=== PATIENT | female | born 1980 | race Caucasian/White ===

== ENCOUNTER 2017-09-06 18:07 | Emergency (ER) | payer OTHER ==
[2017-09-06 18:13] VITALS: BP 124/56; PULSE 92; RESP 16; TEMP 98.9; O2SAT 99
--- NOTE | 2017-09-06 18:37 | PD ---
HPI Chief Complaint: ENT Complaint Time Seen by Provider: 18:28 Travel History International Travel<30 days: No Contact w/Intl Traveler<30days: No Traveled to known affect area: No History of Present Illness HPI 37-year-old female presents the emergency department with sore throat since last evening. Patient denies specific complaints of fever. No ear pain. No nausea or vomiting. Patient states she is 11 weeks . Has no cough or shortness of breath. No chest pain. Pain in the throat is negative at a 10. It hurts to swallow. She has no known drug allergies. PFSH Past Medical History ?: Social History Alcohol Use: No Tobacco Use: No Substance Use: No Allergies-Medications (Allergen,Severity, Reaction): Coded Allergies: No Known Allergies (Unverified , 09/06/17) Reported Meds & Prescriptions Reported Meds & Active Scripts Active Amoxicillin 500 Mg Cap 500 Mg PO TID 10 Days Review of Systems Except as stated in HPI: all other systems reviewed are Neg General / Constitutional: No: Fever, Chills Eyes: No: Visual changes HENT: Positive: Sore Throat, Rhinitis, Rhinorrhea, Congestion, No: Headaches, Vertigo, Lightheadedness, Nosebleed, Neck Stiffness, Neck Pain, Dental Difficulties, Ear Discharge, Earache Cardiovascular: No: Chest Pain or Discomfort Respiratory: No: Cough, Shortness of Breath, Wheezing, Sneezing Gastrointestinal: No: Nausea, Vomiting, Diarrhea, Abdominal Pain Genitourinary: Positive: Other (11 weeks ), No: Dysuria Musculoskeletal: No: Pain Skin: No Rash Neurologic: No: Weakness Psychiatric: No: Depression Endocrine: No: Polydipsia Hematologic/Lymphatic: No: Easy Bruising Physical Exam Narrative GENERAL: Patient appears in no acute distress. SKIN: Warm and dry. Normal color. Normal turgor. HEAD: Atraumatic. Normocephalic. EYES: Pupils equal and round. No scleral icterus. No injection or drainage. ENT: No nasal bleeding or discharge. Mucous membranes pink and moist. Posterior pharynx appears mildly erythematous with increased mucus noted. Muscles are not significantly enlarged. There is no exudate. No sinus tenderness to palpation. TMs are clear bilaterally. NECK: Trachea midline. Supple and nontender. CARDIOVASCULAR: Regular rate and rhythm. RESPIRATORY: No accessory muscle use. Clear to auscultation. Breath sounds equal bilaterally. GASTROINTESTINAL: Abdomen soft, non-tender, nondistended. Hepatic and splenic margins not palpable. MUSCULOSKELETAL: Extremities without clubbing, cyanosis, or edema. No obvious deformities. NEUROLOGICAL: Awake and alert. No obvious cranial nerve deficits. Motor grossly within normal limits. Five out of 5 muscle strength in the arms and legs. Normal speech. PSYCHIATRIC: Appropriate mood and affect; insight and judgment normal. Data Data Last Documented VS Vital Signs Date Time Temp Pulse Resp B/P (MAP) Pulse Ox O2 Delivery O2 Flow Rate FiO2 09/06/17 18:13 98.9 92 16 124/56 (78) 99 Orders Orders Group A Rapid Strep Screen (09/06/17 18:41) Strep Culture (Group A) (09/06/17 18:29) MDM Medical Decision Making Medical Screen Exam Complete: Yes Emergency Medical Condition: Yes Differential Diagnosis Upper respiratory infection. Pharyngitis. Strep throat. Narrative Course Rapid strep test is sent to the lab. Rapid strep is negative, however the patient has recurrent history of this, so treatment with amoxicillin is felt warranted. Patient is given amoxicillin 3 times a day 10 days. She can take Tylenol and ice chips frequently. Patient follow up if symptoms worsen as needed. Diagnosis Primary Impression: Acute pharyngitis, unspecified Qualified Codes: J02.9 - Acute pharyngitis, unspecified Referrals: [facility] PO Patient Instructions: General Instructions, Pharyngitis (ED) Additional Instructions: Patient is given amoxicillin 3 times a day 10 days. She can take Tylenol and ice chips frequently. Patient follow up if symptoms worsen as needed. Med/Other Pt SpecificInfo: Prescription(s) given Scripts Amoxicillin (Amoxicillin) 500 Mg Cap 500 MG PO TID for Infection for 10 Days, CAP 0 Refills Prov: Hiram Jones MD 09/06/17 Disposition: 01 DISCHARGE HOME Condition: Stable Fredy Malave Sep 06, 2017 18:37
[2017-09-06] MEDS ORDERED: AMOX500C PO (19:24)
== END 2017-09-06 19:35 | disposition home or self-care (01) ==
LOC: PHEFT 18:07
DX: O26.891 Other specified pregnancy related conditions, first trimester (principal); J02.9 Acute pharyngitis, unspecified; Z3A.11 11 weeks gestation of pregnancy
CPT/HCPCS: 87081; 87880; 99283

== ENCOUNTER → 2017-11-06 | Outpatient (CLI) | payer SELFPAY ==
[~2017-11-06] MED LIST: DOXY10TA PO; ONDA8TAB7 PO
== END ==
LOC: HPND 09:25
PROVIDERS: ATTEND Family Medicine
DX: O09.522 Supervision of elderly multigravida, second trimester (principal)
CPT/HCPCS: 76811

== ENCOUNTER → 2017-12-30 | Outpatient (CLI) | payer SELFPAY ==
[2017-12-30 10:06] LABS: HEMATOCRIT 29.9 % (35.0-46.0); HEMOGLOBIN 10.4 GM/DL (11.6-15.3)
== END ==
LOC: CLAB 08:27
PROVIDERS: ATTEND Family Medicine
DX: Z33.1 Pregnant state, incidental (principal)
CPT/HCPCS: 36415; 82951; 85014; 85018; 86850; 86900; 86901

== ENCOUNTER 2018-03-19 06:00 | Inpatient (IN) | payer MEDICAID ==
[~2018-03-19] VITALS: Ht 160 cm; Wt 64.0 kg
[2018-03-19] MEDS ORDERED: PREN1TAB45 PO (06:31)
[2018-03-19] MEDS ORDERED: ACETAMINOPHEN 325 MG TAB PO PRN ×2 (06:45→23:30)
[2018-03-19] MEDS ORDERED: SODIUM CHLORIDE 0.9% FLUSH 10 ML FLUSH IV FLUSH PRN ×2 (06:45→23:30)
[2018-03-19] MEDS ORDERED: DEXT 5%-NACL 0.45% 1000 ML INJ 1,000 ML IV ONE (06:45)
--- NOTE | 2018-03-19 06:45 | PD ---
HPI Chief Complaint contractions Date Seen: Mar 19, 2018 Time Seen: 06:10 Travel History International Travel<30 Days: No Contact w/Intl Traveler<30Days: No Known Affected Area: No History of Present Illness HPI Ms Phoenix is a Moldovan speaking 37 YO at 38/[address] Menon who presents with contractions since 3AM this morning. There is no LOF or VB, there is good FM. Contractions have been regular and painful. Pt has had no DM or HTN during and is GBS negative. Other labs have been wnl. First required for arrest of labor. Second ended in miscarriage. There have been no complications this . Weeks Gestation: 38 Para: 1 : 3 Miscarriage: 1 : 0 History Past Medical History Medical History: Denies Significant Hx Obstetric History Obstetric History for arrest of labor Spontaneous miscarriage Past Surgical History Narrative Surgical Family History Narrative Family History Denies Family History: Negative Social History Narrative Social History Lives in [place] Alcohol Use: No Tobacco Use: No Substance Abuse: No Allergies-Medications (Allergen,Severity, Reaction): Coded Allergies: No Known Allergies (Unverified , 10/07/17) Home Meds Active Scripts Doxylamine-Pyridoxine (Diclegis) 10-10 Mg Tab, 2 TAB PO HS, #60 TAB Michaelle dos (2) tabletas antes de dormir para la nausea Prov:Flavio Menon MD R2 10/15/17 Ondansetron (Ondansetron) 8 Mg Tab, 8 MG PO BID Y for NAUSEA OR VOMITING, #30 TAB 0 Refills Michaelle 1 tableta dos veces al olivia juan carlos se necesita para la nausea terry Prov:Flavio Menon MD R2 10/15/17 Review of Systems General / Constitutional: No: Fever, Chills Eyes: No: Blurred Vision, Visual changes HENT: No: Headaches, Lightheadedness Cardiovascular: No: Chest Pain or Discomfort, Palpitations Respiratory: No: Cough, Short of Breath Gastrointestinal: No: Nausea, Vomiting, Diarrhea, Abdominal Pain Genitourinary: Pelvic Pain (contractions), No: Dysuria, Discharge, Vaginal Bleeding Musculoskeletal: Pain (contractions) Skin: No Rash Neurologic: No: Dizziness Physical Exam Narrative GENERAL: Well-nourished, well-developed patient with painful contractions. SKIN: Warm and dry. No rash or lesions. HEAD: Normocephalic and atraumatic. EYES: No scleral icterus. No injection or drainage. ENT: No nasal drainage noted. Mucous membranes pink. Airway patent. NECK: Supple, trachea midline. No JVD. CARDIOVASCULAR: Regular rate and rhythm without murmurs, gallops, or rubs. RESPIRATORY: Breath sounds equal bilaterally. No accessory muscle use. ABDOMEN/GI: Abdomen soft, non-tender, bowel sounds present, no rebound, no guarding Gravid to 38 weeks size GENITOURINARY: External Genitalia: intact and normal in appearance Cervix: - Dilatation: 2-3 Effacement: 50 Station: -3 Presentation: vtx Membranes: intact Uterine Contractions: regular q2-3 minutes FHT's: Category: 1 Baseline: 130 Reactive: yes Variability: moderate Decels: none EXTREMITIES: No cyanosis or edema. BACK: Nontender without obvious deformity. No CVA tenderness. NEUROLOGICAL: Awake and alert. Motor and sensory grossly within normal limits. Five out of 5 muscle strength in all muscle groups. Normal speech. Data Data Vital Signs Reviewed: Yes Group B Strep: Negative MDM Medical Record Reviewed: Yes Narrative Course / MDM 37 YO Moldovan speaking at 38/5 weeks presents with painful contractions since 3AM with no LOF or VB. There is good FM. Cervix is 2-3/50/-3. FHT reveal Cat 1 tracing, BL 130, reactive, moderate variability, no decels. 1. IUP + painful ctx -Monitor and toco -Urine dip; UA C+S if positive -Fentanyl 25mcg IV once -1L bolus D5-1/2NS Pt SDW Gita Cardenas and Michael Diagnosis Diagnosis: Primary Impression: Uterine contractions Additional Impression: False labor after 37 completed weeks of gestation Curt Wills MD R1 Mar 19, 2018 06:45
[2018-03-19 07:26] LABS: AUTOMATED NEUTROPHIL # 10.1 TH/MM3 (1.8-7.7); BASOPHIL % 0.3 % (0.0-2.0); EOSINOPHIL % 0.2 % (0.0-4.0); HEMATOCRIT 34.6 % (35.0-46.0); HEMOGLOBIN 11.9 GM/DL (11.6-15.3); LYMPHOCYTE # 2.4 TH/MM3 (1.0-4.8); MEAN CELL VOLUME 91.6 FL (80.0-100.0); MEAN CORPUSCULAR HEMOGLOBIN 31.4 PG (27.0-34.0); MEAN CORPUSCULAR HGB CONC 34.3 % (32.0-36.0); MEAN PLATELET VOLUME 9.8 FL (7.0-11.0); MONO % 5.1 % (0.0-8.0); MONOCYTE # 0.7 TH/MM3 (0-0.9); NEUT % 76.4 % (16.0-70.0); PLATELET COUNT 198 TH/MM3 (150-450); RED BLOOD COUNT 3.78 MIL/MM3 (4.00-5.30); RED CELL DISTRIBUTION WIDTH 14.5 % (11.6-17.2); WHITE BLOOD COUNT 13.3 TH/MM3 (4.0-11.0)
[2018-03-19 07:58] LABS: BICARBONATE 20.6 MEQ/L (21.0-32.0); CALCIUM 8.5 MG/DL (8.5-10.1); CREATININE 0.76 MG/DL (0.50-1.00)
[2018-03-19 08:12] LABS: BILIRUBIN, URINE NEG (NEG); BLOOD, URINE NEG (NEG); GLUCOSE,URINE NEG (NEG); KETONE, URINE NEG (NEG); NITRITE,URINE NEG (NEG); SQUAMOUS EPITHELIAL CELL URINE 1 /hpf (0-5); URINE COLOR Straw (YELLW/STRAW); URINE LEUKOCYTE ESTERASE NEG (NEG)
[2018-03-19] MEDS: SODIUM CHLORIDE 0.9% FLUSH 10 ML FLUSH IV FLUSH SCH ×2 (09:00→21:00)
[2018-03-19] MEDS ORDERED: MULTIVIT/MIN/PREN/FOL AC/IRON PRENATAL TAB PO SCH (09:00)
[2018-03-19] MEDS ORDERED: LACTATED RINGER'S 1000 ML INJ 1,000 ML IV PRN (09:50)
[2018-03-19] MEDS ORDERED: OXYTOCIN 30 UNITS-500ML PREMIX 500 ML IV ONE ×2 (10:00→23:30)
[2018-03-19] MEDS ORDERED: LIDOCAINE HCL 1% 50 ML VIAL I-DERMAL PRN (10:00)
[2018-03-19] MEDS ORDERED: LIDOCAINE HCL 1% 50 ML VIAL INFIL PRN (10:00)
[2018-03-19] MEDS ORDERED: CITRIC ACID-SODIUM CITRATE LIQ 30 ML UDC PO SCH (10:00)
[2018-03-19] MEDS ORDERED: SODIUM CHLORID 0.9% 500 ML INJ 500 ML IV PRN (10:00)
[2018-03-19] MEDS ORDERED: MINERAL OIL 10 ML VIAL TOPICAL PRN (10:00)
--- NOTE | 2018-03-19 10:00 | HHI.HP ---
History & Physical H&P HPI Ms Phoenix is a Albanian speaking 37 YO at 38/[address] Menon who presents with contractions since 3AM this morning. There is no LOF or VB, there is good FM. Contractions have been regular and painful. Pt has had no DM or HTN during and is GBS negative. Other labs have been wnl. First required for arrest of labor. Second ended in miscarriage. There have been no complications this . Weeks Gestation: 38 Para: 1 : 3 Miscarriage: 1 : 0 History Past Medical History Medical History: Denies Significant Hx Obstetric History Obstetric History for arrest of labor Spontaneous miscarriage Past Surgical History Narrative Surgical Family History Narrative Family History Denies Family History: Negative Social History Narrative Social History Lives in [place] Alcohol Use: No Tobacco Use: No Substance Abuse: No Allergies-Medications (Allergen,Severity, Reaction): Coded Allergies: No Known Allergies (Unverified , 10/07/17) Home Meds Active Scripts Doxylamine-Pyridoxine (Diclegis) 10-10 Mg Tab, 2 TAB PO HS, #60 TAB Michaelle dos (2) tabletas antes de dormir para la nausea Prov:Flavio Menon MD R2 10/15/17 Ondansetron (Ondansetron) 8 Mg Tab, 8 MG PO BID Y for NAUSEA OR VOMITING, #30 TAB 0 Refills Michaelle 1 tableta dos veces al olivia juan carlos se necesita para la nausea terry Prov:Flavio Menon MD R2 10/15/17 Review of Systems General / Constitutional: No: Fever, Chills Eyes: No: Blurred Vision, Visual changes HENT: No: Headaches, Lightheadedness Cardiovascular: No: Chest Pain or Discomfort, Palpitations Respiratory: No: Cough, Short of Breath Gastrointestinal: No: Nausea, Vomiting, Diarrhea, Abdominal Pain Genitourinary: Pelvic Pain (contractions), No: Dysuria, Discharge, Vaginal Bleeding Musculoskeletal: Pain (contractions) Skin: No Rash Neurologic: No: Dizziness Physical Exam Narrative GENERAL: Well-nourished, well-developed patient with painful contractions. SKIN: Warm and dry. No rash or lesions. HEAD: Normocephalic and atraumatic. EYES: No scleral icterus. No injection or drainage. ENT: No nasal drainage noted. Mucous membranes pink. Airway patent. NECK: Supple, trachea midline. No JVD. CARDIOVASCULAR: Regular rate and rhythm without murmurs, gallops, or rubs. RESPIRATORY: Breath sounds equal bilaterally. No accessory muscle use. ABDOMEN/GI: Abdomen soft, non-tender, bowel sounds present, no rebound, no guarding Gravid to 38 weeks size GENITOURINARY: External Genitalia: intact and normal in appearance Dilatation: 1-2 Effacement: 50 Station: -3 Presentation: vtx Membranes: intact Uterine Contractions: regular q2-3 minutes FHT's: Category: 1 Baseline: 130 Reactive: yes Variability: moderate Decels: none EXTREMITIES: No cyanosis or edema. BACK: Nontender without obvious deformity. No CVA tenderness. NEUROLOGICAL: Awake and alert. Motor and sensory grossly within normal limits. Five out of 5 muscle strength in all muscle groups. Normal speech. Data Data Vital Signs Reviewed: Yes Group B Strep: Negative MDM Medical Record Reviewed: Yes Narrative Course / MDM 37 YO Albanian speaking at 38/5 weeks presents with painful contractions since 3AM with no LOF or VB. There is good FM. Cervix is 1-2/50/-3. FHT reveal Cat 1 tracing, BL 130, reactive, moderate variability, no decels. 1. IUP + painful ctx -Patient electing for . Will admit to L&D with no augmentation at this time. -Routine L&D orders -Fentanyl for pain -S/P 1L bolus D5-1/2NS in the OB ED Aristides Riggs MD R1 Mar 19, 2018 10:00
[2018-03-19] MEDS ORDERED: SODIUM CHLOR 0.9% 1000 ML INJ 1,000 ML IV PRN (10:10)
[2018-03-19] MEDS ORDERED: hydrOXYzine HCL 50 MG/ML VIAL IM ONE (15:00)
[2018-03-19] MEDS ORDERED: fentaNYL 2MCG-BUPIV 0.125% INJ 150 ML EPIDURAL ONE (16:18)
[2018-03-19] MEDS: LACTATED RINGER'S 1000 ML INJ 1,000 ML IV SCH ×2 (16:50→17:40)
[2018-03-19] MEDS ORDERED: fentaNYL 2MCG-BUPIV 0.125% 150 ML EPIDURAL PRN (18:45)
[2018-03-19] MEDS ORDERED: ePHEDrine/NS 25 MG/5 ML SYRINGE IV PUSH PRN (18:45)
[2018-03-19] MEDS ORDERED: DO NOT ADMINISTER ANTICOAGULANTS PRN (18:45)
[2018-03-19] MEDS ORDERED: NO SYSTEM NARCOTICS PRN (18:45)
--- NOTE | 2018-03-19 20:35 | PD.LABORPN ---
Subjective Subjective 37 yo in labor, resting comfortably, epidural in place. Objective Objective Pelvic Exam: Cervix: posterior Dilatation: 5 Effacement: 80-90% Station: -4 Presentation: Vertex Membranes: AROM Uterine Contractions: Regular every 2-5 mins FHT's: Category: 1 Baseline: 150 Reactive: Y Variability: moderate Decels: N Weeks Gestation: 38 Artificial rupture of membrane: Yes Artificial ROM date: Mar 19, 2018 Artifical ROM time: 20:20 Assessment/Plan Problem List: (1) Normal labor ICD Codes: O80 - Encounter for full-term uncomplicated delivery; Z37.9 - Outcome of delivery, unspecified (2) AMA (advanced maternal age) multigravida 35+ ICD Codes: O09.529 - Supervision of elderly multigravida, unspecified trimester Assessment and Plan 37 yo at 38/5 in labor. History of progressing to 9 cm and with arrest of labor in prior Pelvis small and not favorable by exam AROM performed with AmniTone Patient and fetus tolerated procedure well Will re-examine in 30-45 min; if baby's head fails to descend, will proceed with C/S for cephalopelvic disproportion Flavio Menon MD R2 Mar 19, 2018 20:35
--- NOTE | 2018-03-19 22:12 | PD.LABORPN ---
Subjective Subjective epidural working well for pain control Objective Objective Pelvic Exam: Cervix: [] Dilatation: [-5] Effacement: [-90] Station: [-4] Presentation: [-vtx] Membranes: [intact or ruptured]ruptured Uterine Contractions: [-]q5min FHT's: Category: [-] 1 Baseline: [-] 140 Reactive: [-] mod Variability: [-] mod Decels: [-] absent Weeks Gestation: 38 Artificial rupture of membrane: Yes Artificial ROM date: Mar 19, 2018 Artifical ROM time: 20:20 Assessment/Plan Problem List: (1) Normal labor ICD Codes: O80 - Encounter for full-term uncomplicated delivery; Z37.9 - Outcome of delivery, unspecified (2) AMA (advanced maternal age) multigravida 35+ ICD Codes: O09.529 - Supervision of elderly multigravida, unspecified trimester (3) Failure of descent in labor, delivered, current hospitalization ICD Codes: O62.2 - Other uterine inertia Assessment and Plan Patient in active labor without progression. Vertex is still very high, likely due to CPD as pelvis is somewhat contracted No descent of head in a patient with previous Unsuccessful attempt Plan Dara Junior MD Mar 19, 2018 22:12
[2018-03-19] MEDS ORDERED: ceFAZolin 2 GM PREMIX 50 ML IV SCH (22:15)
[2018-03-19] MEDS ORDERED: MORPHINE SULFATE PF 5 MG/10 ML VIAL ONE (22:26)
[2018-03-19] MEDS ORDERED: EPIDURAL-DIPHENHYDRAMINE HCL 50 MG/ML VIAL IV PUSH PRN (22:30)
[2018-03-19] MEDS ORDERED: EPIDURAL-DIPHENHYDRAMINE HCL 50 MG CAP PO PRN (22:30)
[2018-03-19] MEDS ORDERED: EPIDURAL-DO NOT ADMINISTER ANTICOAGULANTS PRN (22:30)
[2018-03-19] MEDS ORDERED: EPIDURAL-NO SYSTEMIC NARCOTICS PRN (22:30)
[2018-03-19] MEDS ORDERED: EPIDURAL-NALOXONE HCL 0.4 MG/ML AMP IV PUSH PRN (22:30)
[2018-03-19] MEDS ORDERED: SIMETHICONE 80 MG CHEWABLE TAB PO PRN (23:30)
[2018-03-19] MEDS ORDERED: oxyCODONE/ACETAMINOPHEN 5 MG/325 MG TAB PO PRN ×2 (23:30)
[2018-03-19] MEDS ORDERED: ONDANSETRON ODT 4 MG TAB PO PRN (23:30)
[2018-03-19] MEDS ORDERED: DOCUSATE SODIUM 50 MG/SENNA 8.6 MG TAB PO PRN (23:30)
[2018-03-19] MEDS ORDERED: ZOLPIDEM TARTRATE 5 MG TAB PO PRN (23:30)
--- NOTE | 2018-03-19 23:30 | PD.OB.DELI ---
Procedure Note Section Procedure Pre Op Diagnosis: (1) Uterine contractions (2) Failure of descent in labor, delivered, current hospitalization (3) AMA (advanced maternal age) multigravida 35+ (4) 38 weeks gestation of (5) Previous delivery affecting , antepartum Post Op Diagnosis: Performed by Dara Junior Procedure: Repeat Low Transverse Sec Indication for delivery: Other (Failure to descend) Informed consent obtained: For anesthesia, For procedure Confirmed correct: Time-out taken Anesthesia: Epidural Medication prior to procedure: Antibiotics, IV Urinary catheter: Inserted using sterile technique, To dependent drainage Sterile preparation: Duraprep Position: Supine with wedge to left side Operative Features Skin Incision: Pfannenstiel Uterine Incision: Low transverse w/knife / blunt ext Membranes Ruptured: Previously, Appearance of fluid (light meconium) Presentation: Occiput anterior Delivery date: Mar 19, 2018 Delivery time: 22:47 Delivery of : Uneventful Infant: Male One Minute : 8 Five Minute : 9 Weight: 6#6oz Status of : Viable Placenta delivered: Intact Medications: Antibiotics Estimated blood loss: 1500 Procedure tolerated: Well (Extensive large lower uterine segment varicosities requiring additional suture for hemostasis) Maternal Condition: Stable Condition: Stable Dara Junior MD Mar 19, 2018 23:30
[2018-03-20] MEDS ORDERED: OXYTOCIN 30 UNITS-500ML PREMIX 500 ML ONE (00:06)
--- NOTE | 2018-03-20 00:07 | MP ---
cc: Dara Jnuior MD DATE OF OPERATION: 03/19/2018 DATE OF PROCEDURE: 03/19/2018. PREOPERATIVE DIAGNOSES: 1. 38/39 weeks' gestation. 2. Previous section, attempting vaginal after . 3. Advanced maternal age. 4. Failure of descent in labor. POSTOPERATIVE DIAGNOSES: 1. 38/39 weeks' gestation. 2. Previous section, attempting vaginal after . 3. Advanced maternal age. 4. Failure of descent in labor. PROCEDURE PERFORMED: Repeat low transverse section without extension. ESTIMATED BLOOD LOSS: 1500 mL. ANESTHETIC: Epidural. COMPLICATIONS: None. MEDICATIONS: Ancef 2 g given preoperatively. DRAINS: Pritchard to gravity. PATHOLOGY: Placenta. COUNTS: Correct x3. FINDINGS: 1. Normal uterus, tubes and ovaries. 2. Large lower uterine segment varicosities. 3. male, Apgars were 8 and 9, vertex presentation, weighing 6 pounds 6 ounces. 4. Hemostasis after the procedure. DESCRIPTION OF PROCEDURE: The patient was taken back to the operating room, prepped and draped in usual sterile fashion, placed in the dorsal supine position with a wedge to her left side. After adequate anesthetic was administered, a Pfannenstiel incision was made in the skin, taking out her old scar, and the incision was taken down to the fascia. The fascia was nicked in the midline and extended bilaterally and taken off the rectus muscles. Muscles were divided in the midline. Anterior peritoneum was entered. The large lower uterine segment varicosities were noted, and incision was made slightly above her previous uterine incision to avoid the vascular supply. A hysterotomy incision was made and bluntly extended bilaterally. The 's head was delivered to the operative field. Nuchal cord x 1 was reduced. Rest of body was delivered and the cord was clamped after a 45-second delay. Placenta was delivered intact spontaneously and appeared to be normal. Light meconium was noted in the amniotic fluid. Endometrial cavity was curetted with a moist laparotomy sponge and the hysterotomy incision was repaired using a running locking #1 chromic suture. The patient had some additional bleeding from the varicosities that were made hemostatic using [id number] sutures in the lower segment. Hemostasis was achieved and gutters were rendered free of all blood and clot material. The muscles were plicated in the midline using a 2-0 chromic in a running fashion, and a #1 PDS was used in a running fashion on the fascia. Subcuticular tissue was made hemostatic with the Bovie and the skin was closed with a 3-0 Monocryl. The patient tolerated the procedure well. She was taken back to the recovery room in good condition. MD ARTEMIO Mayers/TOMÁS , 11:33 PM , 12:06 AM
[2018-03-20] MEDS: IBUPROFEN 600 MG TAB PO PRN ×3 (01:23→23:06)
[2018-03-20] MEDS ORDERED: LACTATED RINGER'S 1000 ML INJ 1,000 ML IV SCH (04:28)
[2018-03-20] MEDS ORDERED: OXYTOCIN 30 UNITS-500ML PREMIX 500 ML IV PRN (04:30)
[2018-03-20 06:13] LABS: AUTOMATED NEUTROPHIL # 19.4 TH/MM3 (1.8-7.7); BASOPHIL % 0.1 % (0.0-2.0); HEMATOCRIT 28.4 % (35.0-46.0); HEMOGLOBIN 9.7 GM/DL (11.6-15.3); LYMPH % 5.1 % (9.0-44.0); LYMPHOCYTE # 1.1 TH/MM3 (1.0-4.8); MEAN CELL VOLUME 91.7 FL (80.0-100.0); MEAN CORPUSCULAR HEMOGLOBIN 31.3 PG (27.0-34.0); MEAN CORPUSCULAR HGB CONC 34.2 % (32.0-36.0); MEAN PLATELET VOLUME 9.7 FL (7.0-11.0); MONO % 4.1 % (0.0-8.0); MONOCYTE # 0.9 TH/MM3 (0-0.9); NEUT % 90.7 % (16.0-70.0); PLATELET COUNT 162 TH/MM3 (150-450); RED CELL DISTRIBUTION WIDTH 14.6 % (11.6-17.2); WHITE BLOOD COUNT 21.4 TH/MM3 (4.0-11.0)
--- NOTE | 2018-03-20 08:51 | HHI.OB ---
Subjective Remarks Patient is a 37-year-old delivered at 38 weeks and 5 days. Patient is day 1 after . Patient's pain is well-controlled. Patient reports eating and drinking without any nausea or vomiting. Patient reports minimal bleeding. Patient has not passed gas yet and still has Pritchard in place. Patient has not started walking yet but does not complain of shortness of breath or chest pain. Patient reports desire for contraception. Objective Objective Remarks GENERAL: Well-nourished, well-developed patient. CARDIOVASCULAR: Regular rate and rhythm without murmurs, gallops, or rubs. RESPIRATORY: Breath sounds equal bilaterally. No accessory muscle use. ABDOMEN/GI: Abdomen soft, non-tender. Fundus: Firm, non-tender at umbilicus. GENITOURINARY: Light to moderate bleeding. EXTREMITIES: No cyanosis or edema, non-tender, without signs of DVT. Medications and IVs Current Medications Medications (Trade) Dose Ordered Sig/Enrique Route Start Time Stop Time Status Last Admin ([facility] [place] Nursing Information) No systemic narcotics to be given except... UNSCH PRN .XX 03/19/18 18:45 03/20/18 18:44 ([facility] [place] Nursing Information) DO NOT ADMINISTER ANY ANTICOAGUL... UNSCH PRN .XX 03/19/18 18:45 03/20/18 18:44 Fentanyl/ Bupivacaine/ Sodium Chlor 150 ml @ 10 mls/hr TITRATE PRN EPIDURAL 03/19/18 18:45 (ePHEDrine/NS 25 MG/5 ML SYR) 10 mg UNSCH PRN IV PUSH 03/19/18 18:45 03/20/18 18:44 Cefazolin Sodium/ Dextrose 50 ml @ 100 mls/hr EDUCATION COUNSELOR IV 03/19/18 22:15 03/23/18 22:14 Lactated Ringer's 1,000 ml @ 100 mls/hr Q10H IV 03/20/18 04:28 03/21/18 00:27 Oxytocin 500 ml @ 100 mls/hr UNSCH X1 PRN IV 03/20/18 04:30 03/21/18 04:29 (NS Flush) 2 ml BID IV FLUSH 03/20/18 09:00 (NS Flush) 2 ml UNSCH PRN IV FLUSH 03/19/18 23:30 (Mylicon Chew) 80 mg QID PRN PO 03/19/18 23:30 (Tylenol) 650 mg Q6H PRN PO 03/19/18 23:30 (Motrin) 600 mg Q6H PRN PO 03/19/18 23:30 03/20/18 01:23 (Percocet 5-325 Mg) 1 tab Q4H PRN PO 03/19/18 23:30 (Percocet 5-325 Mg) 2 tab Q4H PRN PO 03/19/18 23:30 (Rosalva-Colace) 2 tab Q12H PRN PO 03/19/18 23:30 (Ambien) 5 mg HS PRN PO 03/19/18 23:30 (M-M-R Ii Inj) 0.5 ml ONCE ONCE SQ 03/20/18 16:00 03/20/18 16:01 (Boostrix Inj) 0.5 ml ONCE ONCE IM 03/20/18 16:00 03/20/18 16:01 (Zofran Odt) 4 mg Q6H PRN PO 03/19/18 23:30 ([facility] [place] Nursing Information) NO SYSTEMIC NARCOTICS TO BE GIVEN FO... UNSCH PRN .XX 03/19/18 22:30 03/20/18 22:29 (Narcan Inj) 0.4 mg UNSCH PRN IV PUSH 03/19/18 22:30 03/20/18 22:29 (Benadryl Inj) 25 mg Q6H PRN IV PUSH 03/19/18 22:30 03/20/18 22:29 (Benadryl) 50 mg Q6H PRN PO 03/19/18 22:30 03/20/18 22:29 ([facility] [place] Nursing Information) ALL NURSING DEPARTMENTS UNSCH PRN .XX 03/19/18 22:30 03/20/18 22:29 Assessment/Plan Problem List: (1) Normal labor ICD Codes: O80 - Encounter for full-term uncomplicated delivery; Z37.9 - Outcome of delivery, unspecified (2) AMA (advanced maternal age) multigravida 35+ ICD Codes: O09.529 - Supervision of elderly multigravida, unspecified trimester (3) Failure of descent in labor, delivered, current hospitalization ICD Codes: O62.2 - Other uterine inertia Assessment and Plan Patient is a 37-year-old delivered at 38 weeks and 5 days. Patient is day 1 after . Patient was counseled to do 6 weeks of pelvic rest. Patient was counseled to follow up in 1 and 6 weeks. Patient requested follow-up and contraception. --Continue routine care --Motrin and Percocet when necessary for pain --Encourage OOB --Pelvic rest for 6 weeks will need follow-up appointment at that time. 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 Will touch base with the pediatric team covering the baby. Aristides Riggs MD R1 Mar 20, 2018 08:51
[2018-03-20] MEDS ORDERED: SODIUM CHLORIDE 0.9% FLUSH 10 ML FLUSH IV FLUSH SCH (09:00)
[2018-03-20] MEDS ORDERED: MEASLES, MUMPS, RUBELLA VACCINE 0.5 ML VIAL SQ ONE (16:00)
[2018-03-20] MEDS ORDERED: DIPHTH/TETANUS/ACEL PERTUSSIS (BOOSTER) 0.5 ML VIAL/PFS IM ONE (16:00)
[2018-03-20 19:27] VITALS: BP 112/69; PULSE 80; RESP 17; TEMP 98.3
[2018-03-21] MEDS ORDERED: IBUP-232 PO (08:33)
[2018-03-21] MEDS ORDERED: OXYC1TAB63 PO (08:33)
--- NOTE | 2018-03-21 08:38 | HHI.DCPOC ---
Discharge Care Plan Diagnosis: (1) delivery, delivered, current hospitalization (2) Failure of descent in labor, delivered, current hospitalization Report Symptoms to Your Doctor -Temperatura sobre 100.5 -Color reis de la herida or nupur liquido pasando -Dolor muy terry -Poncho por la vagina que esta aumentando o que no para -Dolor or dificultad de pasar orina -Depresion o ansiedad Goals to Promote Your Health Para mantenecer reveles xochilt Directions to Meet Your Goals Michaelle reveles medicamento juan carlos la receta describa (Medicamento para dolor se puede elicia juan carlos se necesita, no mas que la receta dice) Descansa bastante para recuperarse Michaelle liquido para hidracion Visita a algun doctor despues de michelet semana para chequear la herida No fuma Flavio Menon MD R2 Mar 21, 2018 08:38
--- NOTE | 2018-03-21 09:08 | HHI.OB ---
Subjective Remarks 37 yo female s/p C/S at 38/5 weeks for failure to progress labor now POD 2 being seen for follow up. This morning feels well. No chest pains or shortness of breath. Moderate lower abdominal pain, improving gradually, controlled with medication. No nausea, no vomiting. Passed gas. No BM. Tolerating diet. Objective Vitals/I&O Vital Signs Date Time Temp Pulse Resp B/P (MAP) Pulse Ox O2 Delivery O2 Flow Rate FiO2 03/20/18 19:27 98.3 80 17 112/69 (83) Result Diagram: 03/20/18 0543 03/19/18 0650 Objective Remarks GENERAL: Well-nourished, well-developed patient. CARDIOVASCULAR: Regular rate and rhythm without murmurs, gallops, or rubs. RESPIRATORY: Breath sounds equal bilaterally. No accessory muscle use. ABDOMEN/GI: Abdomen soft Incision: Clean, dry and intact with steri-strips in place Fundus: Firm, moderately tender, approx 3 cm below umbilicus GENITOURINARY: Light to moderate bleeding. EXTREMITIES: No cyanosis or edema, non-tender, without signs of DVT. Medications and IVs Current Medications Medications (Trade) Dose Ordered Sig/Enrique Route Start Time Stop Time Status Last Admin Fentanyl/ Bupivacaine/ Sodium Chlor 150 ml @ 10 mls/hr TITRATE PRN EPIDURAL 03/19/18 18:45 Cefazolin Sodium/ Dextrose 50 ml @ 100 mls/hr [employer] IV 03/19/18 22:15 03/23/18 22:14 (NS Flush) 2 ml BID IV FLUSH 03/20/18 09:00 (NS Flush) 2 ml UNSCH PRN IV FLUSH 03/19/18 23:30 (Mylicon Chew) 80 mg QID PRN PO 03/19/18 23:30 (Tylenol) 650 mg Q6H PRN PO 03/19/18 23:30 (Motrin) 600 mg Q6H PRN PO 03/19/18 23:30 03/20/18 23:06 (Percocet 5-325 Mg) 1 tab Q4H PRN PO 03/19/18 23:30 03/21/18 00:17 (Percocet 5-325 Mg) 2 tab Q4H PRN PO 03/19/18 23:30 (Rosalva-Colace) 2 tab Q12H PRN PO 03/19/18 23:30 (Ambien) 5 mg HS PRN PO 03/19/18 23:30 (Zofran Odt) 4 mg Q6H PRN PO 03/19/18 23:30 Assessment/Plan Problem List: (1) delivery, delivered, current hospitalization ICD Codes: O82 - Encounter for delivery without indication (2) AMA (advanced maternal age) multigravida 35+ ICD Codes: O09.529 - Supervision of elderly multigravida, unspecified trimester (3) Failure of descent in labor, delivered, current hospitalization ICD Codes: O62.2 - Other uterine inertia (4) Normal labor ICD Codes: O80 - Encounter for full-term uncomplicated delivery; Z37.9 - Outcome of delivery, unspecified Assessment and Plan Patient is a 37-year-old delivered at 38 weeks and 5 days. Patient is day 2 after for CPD. --Continue routine care --Motrin and Percocet when necessary for pain --Encourage OOB --Pelvic rest for 6 weeks will need follow-up appointment at that time. Also need follow-up in 1 week for incision check --Contraception: Undecided. Options reviewed, she was interested in Nexplanon. Self pay so she will look into out of pocket cost and call our clinic for placement if she decides --Home today (baby cleared by pediatric team) Flavio Menon MD R2 Mar 21, 2018 09:08
[2018-03-21] MEDS: IBUPROFEN 600 MG TAB PO PRN (15:34)
== END 2018-03-21 17:33 | disposition home or self-care (01) | DRG 766 ==
LOC: HOBED 06:00 → H2EB 09:54 → H1EA 03-20 01:11
PROVIDERS: ADMIT Obstetrics & Gynecology Maternal & Fetal Medicine; ATTEND Obstetrics & Gynecology Maternal & Fetal Medicine
PROC: 10D00Z1 Extraction of Products of Conception, Low, Open Approach (ICD-10-PCS; principal; 2018-03-19)
PROC: 10907ZC Drainage of Amniotic Fluid, Therapeutic from Products of Conception, Via Natural or Artificial Opening (ICD-10-PCS; 2018-03-19)
DX: O34.219 Maternal care for unspecified type scar from previous cesarean delivery (principal); O33.9 Maternal care for disproportion, unspecified; O66.41 Failed attempted vaginal birth after previous cesarean delivery; O62.2 Other uterine inertia; Z37.0 Single live birth; Z3A.38 38 weeks gestation of pregnancy; Z30.09 Encounter for other general counseling and advice on contraception
CPT/HCPCS: 59025; 76815; 80048; 80307; 81001; 85025; 86850; 86900; 86901; 88307; 96361; 96374; G0481; J2274; J2590; J3010; J3410; J7120